=== PATIENT | female | born 1995 | race African-American/Black ===

== ENCOUNTER → 2016-11-16 | Outpatient (CLI) | payer BC ==
--- NOTE | 2016-11-16 12:23 | DIAGNOSTIC IMAGING REPORT ---
THYROID ULTRASOUND CLINICAL HISTORY: Palpable neck mass. COMPARISON STUDY: None. TECHNIQUE: Sonography of the thyroid gland was performed. FINDINGS: Several mildly enlarged bilateral cervical lymph nodes are noted which demonstrate moderate cortical thickening. A few of these nodes lack a discernible fatty hilum. An index right level 2 node measures 2.1 x 1.5 x 0.9 cm. An index left level 2 node measures 2.4 x 2.1 x 1.1 cm. IMPRESSION: Several mildly enlarged bilateral cervical lymph nodes with cortical thickening. These are nonspecific and may be reactive although a lymphoproliferative process could appear similar. Clinical follow up to ensure resolution is recommended. If these persist, ultrasound guided fine needle aspiration of the 2.4 x 2.1 x 1.1 cm left level 2 lymph node is recommended. Electronically signed by: Severo Bellamy M.D. 11/16/2016 12:22 PM Dictated Date/Time: 11/16/2016 12:17 PM
== END | disposition home or self-care (01) ==
LOC: C.ULTRBC 11:28
PROVIDERS: ATTEND Family Medicine
DX: R59.0 Localized enlarged lymph nodes (principal)